=== PATIENT | male | born 1975 ===

== ENCOUNTER 2017-04-05 06:49 | Emergency (ER) | payer OTHER ==
[2017-04-05 07:16] VITALS: BP 143/78; PULSE 71; RESP 16; TEMP 97.8; O2SAT 97
--- NOTE | 2017-04-05 07:27 | ED PDOC ---
HPI: Abdomen Time Seen by Provider: 04/05/17 07:14 Chief Complaint (Nursing): Abdominal Pain Chief Complaint (Provider): Abdominal Pain History Per: Patient History/Exam Limitations: no limitations Onset/Duration Of Symptoms: Days Current Symptoms Are (Timing): Still Present Severity: Moderate Location Of Pain/Discomfort: RUQ Quality Of Discomfort: "Pain" Associated Symptoms: denies: Nausea, Vomiting, Diarrhea, Urinary Symptoms Exacerbating Factors: None Alleviating Factors: None Additional Complaint(s): Patient is a 42 year old male with a history of gastritis, presents to ED for evaluation of RUQ pain that started last night. He cannot identify any triggers. Denies radiation of the pain. Patient denies nausea, vomiting or diarrhea or constipation. Denies chest pain, SOB, fever, urinary changes or back pain. Past Medical History Reviewed: Historical Data, Nursing Documentation, Vital Signs Vital Signs: Last Vital Signs Temp 97.8 F 04/05/17 07:12 Pulse 71 04/05/17 07:12 Resp 16 04/05/17 07:12 BP 143/78 04/05/17 07:12 Pulse Ox 97 04/05/17 10:49 - Medical History PMH: Gastritis - Surgical History Surgical History: No Surg Hx - Family History Family History: States: No Known Family Hx - Living Arrangements Living Arrangements: With Family - Social History Current smoker - smoking cessation education provided: No Alcohol: None Drugs: Denies - Home Medications Home Medications: Ambulatory Orders Medication Instructions Recorded Famotidine [Pepcid] 20 mg PO BID PRN #10 tab 04/15/15 - Allergies Allergies/Adverse Reactions: Allergies Allergy/AdvReac Type Severity Reaction Status Date / Time No Known Allergies Allergy Verified 04/15/15 08:16 Review of Systems ROS Statement: Except As Marked, All Systems Reviewed And Found Negative Constitutional: Negative for: Fever, Chills ENT: Negative for: Ear Pain Cardiovascular: Negative for: Chest Pain Respiratory: Negative for: Shortness of Breath Gastrointestinal: Positive for: Abdominal Pain. Negative for: Nausea, Vomiting , Diarrhea, Hematochezia, Hematemesis Genitourinary Male: Negative for: Dysuria, Hematuria Musculoskeletal: Negative for: Neck Pain, Back Pain Physical Exam - Reviewed Nursing Documentation Reviewed: Yes Vital Signs Reviewed: Yes - Physical Exam Appears: Positive for: Non-toxic, No Acute Distress Head Exam: Positive for: ATRAUMATIC Skin: Positive for: Normal Color, Warm. Negative for: Pallor Eye Exam: Positive for: Normal appearance, PERRL Neck: Positive for: Normal, Painless ROM Cardiovascular/Chest: Positive for: Regular Rate, Rhythm. Negative for: Murmur Respiratory: Positive for: Normal Breath Sounds. Negative for: Respiratory Distress Gastrointestinal/Abdominal: Positive for: Soft, Tenderness (RUQ with referred pain diffusely ). Negative for: Distended, Guarding, Rebound Extremity: Positive for: Normal ROM Neurologic/Psych: Positive for: Alert, Oriented. Negative for: Motor/Sensory Deficits - Laboratory Results Result Diagrams: 04/05/17 07:42 04/05/17 07:42 - ECG O2 Sat by Pulse Oximetry: 97 (RA) Pulse Ox Interpretation: Normal Medical Decision Making Medical Decision Making: Time: 714 Initial impression: Abdominal pain r/o cholecystitis Initial plan: -- CMP -- Lipase -- Magnesium -- Phosphorous -- CBC -- NSF, Toradol and Zofran -- U/S Scribe Attestation: Documented by Layla Perez acting as a scribe for Telma Vega MD MD Scribe Attestation: All medical record entries made by the Scribe were at my direction and personally dictated by me. I have reviewed the chart and agree that the record accurately reflects my personal performance of the history, physical exam, medical decision making, and the department course for this patient. I have also personally directed, reviewed, and agree with the discharge instructions and disposition. 8:24AM Labs show elevated lfts, but normal bilirubin. Lipase WNL. P: RUQ u/s 10:35AM U/s negative for acute pathology. patient is tolerating po and feels better. LFTs are chronicly elevated with mild elevation today. Instructed to follow-up for resolution 10:46AM Fatty infiltration of the liver. Roughly 2 cm irregularly-shaped hypoechoic lesion in the left hepatic lobe. Possible focal fatty sparing but this is not certain on the basis of this examination. Consider correlation with pre and post contrast enhanced CT examination on a nonemergent basis. No evidence of cholelithiasis or cholecystitis. . Disposition - Clinical Impression Clinical Impression: Liver lesion, Gastritis - Disposition Disposition: Routine/Home Disposition Time: 10:36 Condition: GOOD Additional Instructions: Follow up with PMD within 2 days. Return to ED if condition worsens. Follow- up as outpatient for liver lesion Instructions: Gastritis (ED) Print Language: UPPER SORBIAN
[2017-04-05] MEDS ORDERED: Sodium Chloride 0.9% 1,000 ML IV SCH (07:30)
[2017-04-05 08:00] LABS: BASO % 0.6 % (0.0-2.0); EOS # 0.1 K/uL (0.0-0.7); EOS % 2.4 % (0.0-4.0); HEMATOCRIT 42.8 % (35.0-51.0); LYMPH # 1.6 K/uL (1.0-4.3); LYMPH % 36.9 % (20.0-40.0); MEAN CELL VOLUME 87.4 fl (80.0-94.0); MEAN CORPUSCULAR HEMOGLOBIN 29.9 pg (27.0-31.0); MEAN CORPUSCULAR HGB CONC 34.2 g/dL (33.0-37.0); MEAN PLATELET VOLUME 8.4 fl (7.2-11.7); MONO # 0.4 K/uL (0.0-0.8); MONO % 10.3 % (0.0-10.0); NEUT # 2.1 K/uL (1.8-7.0); NEUT % 49.8 % (50.0-75.0); NRBC % 0.1 % (0.0-0.0); RED CELL DISTRIBUTION WIDTH 14.1 % (11.5-14.5); WHITE BLOOD COUNT 4.3 K/uL (4.8-10.8)
[2017-04-05 08:08] LABS: ALB/GLOB RATIO 1.3 (1.0-2.1); ALKALINE PHOSPHATASE 109 U/L (38-126); ALT/SGPT 186 U/L (21-72); AST/SGOT 99 U/L (17-59); BILIRUBIN,TOTAL 0.9 mg/dl (0.2-1.3); BLOOD UREA NITROGEN 15 mg/dl (9-20); CARBON DIOXIDE 27 mmol/L (22-30); CHLORIDE 102 mmol/L (98-107); GFR AFRICAN-AMERICAN > 60; GLUCOSE,RANDOM 101 mg/dL (75-110); LIPASE 70 U/L (23-300); MAGNESIUM 2.3 MG/DL (1.6-2.3); PHOSPHOROUS 3.1 mg/dl (2.5-4.5); POTASSIUM 4.2 MMOL/L (3.6-5.0); SODIUM 140 mmol/l (132-148); TOTAL PROTEIN 7.9 G/DL (6.3-8.2)
[2017-04-05] MEDS ORDERED: Oxycodone/Acetaminophen 5/325 mg Tab ONE (08:26)
[2017-04-05] MEDS ORDERED: Oxycodone/Acetaminophen 5/325 mg Tab PO ONE (08:30)
[2017-04-05] MEDS ORDERED: Alum-Mag Hydrox-Simethicone Susp (30 mL) ONE (10:35)
[2017-04-05] MEDS ORDERED: Alum-Mag Hydrox-Simethicone Susp (30 mL) PO STA (10:36)
--- NOTE | 2017-04-05 10:46 | US ---
HISTORY: RUQ pain COMPARISON: None. TECHNIQUE: Sonographic evaluation of the abdomen. FINDINGS: LIVER: Measures 17.5 cm. Diffusely increased echogenicity of the liver parenchyma. Smooth contour. Irregularly-shaped hypoechoic mass/ lesion in left hepatic lobe, roughly 2 cm diameter. Possible focal fatty sparing. However, this is not certain on the basis of this examination. Consider correlation pre and post contrast enhanced computed tomography. No other hepatic mass. No biliary ductal dilatation. No mass. No intrahepatic bile duct dilatation. GALLBLADDER: Unremarkable. No gallstones. COMMON BILE DUCT: Measures 4 mm. No stones. No dilatation. PANCREAS: Unremarkable as visualized. No mass. No ductal dilatation. RIGHT KIDNEY: Measures 10.8cm. Normal echogenicity. No calculus, mass, or hydronephrosis. LEFT KIDNEY: Measures 13.0cm. Normal echogenicity. No calculus, mass, or hydronephrosis. SPLEEN: Normal in size and contour. No mass. AORTA: No aneurysmal dilatation. IVC: Unremarkable. OTHER FINDINGS: None. IMPRESSION: Fatty infiltration of the liver. Roughly 2 cm irregularly-shaped hypoechoic lesion in the left hepatic lobe. Possible focal fatty sparing but this is not certain on the basis of this examination. Consider correlation with pre and post contrast enhanced CT examination on a nonemergent basis. No evidence of cholelithiasis or cholecystitis. .
== END 2017-04-05 11:10 | disposition home or self-care (01) ==
LOC: H.ER 06:49
DX: K29.70 Gastritis, unspecified, without bleeding (principal); K76.0 Fatty (change of) liver, not elsewhere classified; R10.11 Right upper quadrant pain

== ENCOUNTER 2017-05-23 07:19 | Emergency (ER) | payer OTHER ==
[2017-05-23 07:24] VITALS: TEMP 97; O2SAT 99; BMI 29.4
[2017-05-23 08:07] VITALS: RESP 18
[2017-05-23] MEDS ORDERED: Sodium Chloride 0.9% 1,000 ML IV STA (08:22)
--- NOTE | 2017-05-23 08:22 | ED PDOC ---
HPI: Abdomen Time Seen by Provider: 05/23/17 07:38 Chief Complaint (Nursing): Abdominal Pain Chief Complaint (Provider): abdominal pain History Per: Patient History/Exam Limitations: no limitations Onset/Duration Of Symptoms: Other (x 2 weeks) Outside of [place] travel?: No Additional Complaint(s): Kyle Cardona is a 42 year old male, with no previous medical history, who presents to the ED with comlaints of abdominal pain associated with diarrhea ongoing for 2 weeks. Patient denies any nausea, vomiting, urinary symptoms, fever, chills or drinking caffeine. He reports taking milanta with some relief. Patient was seen in the ED 1 month ago for similar symptoms where he was diagnosed with gastritis. PMD: none provided Past Medical History Reviewed: Historical Data, Nursing Documentation, Vital Signs Vital Signs: Last Vital Signs Temp 97 F L 05/23/17 08:05 Pulse 74 05/23/17 08:05 Resp 18 05/23/17 08:05 BP 137/92 H 05/23/17 08:05 Pulse Ox 99 05/23/17 08:39 - Medical History PMH: Gastritis - Surgical History Surgical History: No Surg Hx - Family History Family History: States: Unknown Family Hx - Social History Alcohol: Social Drugs: Denies - Home Medications Home Medications: Ambulatory Orders Medication Instructions Recorded Famotidine [Pepcid] 20 mg PO BID PRN #10 tab 04/15/15 Famotidine [Pepcid] 20 mg PO BID #28 tab 05/23/17 - Allergies Allergies/Adverse Reactions: Allergies Allergy/AdvReac Type Severity Reaction Status Date / Time No Known Allergies Allergy Verified 04/15/15 08:16 Review of Systems ROS Statement: Except As Marked, All Systems Reviewed And Found Negative Constitutional: Negative for: Fever, Chills Gastrointestinal: Positive for: Abdominal Pain, Diarrhea. Negative for: Nausea , Vomiting Genitourinary Male: Negative for: Dysuria, Frequency, Incontinence, Hematuria Physical Exam - Reviewed Nursing Documentation Reviewed: Yes Vital Signs Reviewed: Yes - Physical Exam Appears: Positive for: Well, Non-toxic (anicteric ), No Acute Distress Head Exam: Positive for: ATRAUMATIC, NORMAL INSPECTION, NORMOCEPHALIC Skin: Positive for: Normal Color, Warm, Dry Eye Exam: Positive for: Normal appearance ENT: Positive for: Normal ENT Inspection Neck: Positive for: Normal, Painless ROM Cardiovascular/Chest: Positive for: Regular Rate, Rhythm Respiratory: Positive for: Normal Breath Sounds Gastrointestinal/Abdominal: Positive for: Bowel Sounds, Soft, Tenderness (RUQ, RLQ and LLQ), Guarding (mild in the RUQ) Back: Positive for: Normal Inspection Extremity: Positive for: Normal ROM Neurologic/Psych: Positive for: Alert, Oriented - Laboratory Results Result Diagrams: 05/23/17 08:53 05/23/17 08:53 - ECG O2 Sat by Pulse Oximetry: 99 (RA) Pulse Ox Interpretation: Normal Medical Decision Making Medical Decision Making: Initial Impression: abdominal pain with differencials including diverticulitis and colithiasis Initial Plan: * labs * lipase * X-ray obstructive series * pepcid 20 mg IV * toradol 30 mg IV * zofran 4 mg IV * reevaluation Scribe Attestation: Documented by Love Grimes, acting as a scribe for Edyta Santana MD. Provider Scribe Attestation: All medical record entries made by the Scribe were at my direction and personally dictated by me. I have reviewed the chart and agree that the record accurately reflects my personal performance of the history, physical exam, medical decision making, and the department course for this patient. I have also personally directed, reviewed, and agree with the discharge instructions and disposition. Disposition - Clinical Impression Clinical Impression: Abdominal discomfort - Patient ED Disposition Is Patient to be Admitted: No Doctor Will See Patient In The: Office Counseled Patient/Family Regarding: Diagnosis, Need For Followup, Rx Given - Disposition Referrals: [facility] [Outside] [facility] [Outside] [facility] [Outside] Disposition: Routine/Home Disposition Time: 12:30 Condition: IMPROVED Prescriptions: Famotidine [Pepcid] 20 mg PO BID #28 tab Instructions: Abdominal Pain (ED) Forms: [employer] (Montserratian) Print Language: COLOMBIAN - POA Present On Arrival: None
[2017-05-23 09:02] LABS: BASO % 0.5 % (0.0-2.0); EOS # 0.1 K/uL (0.0-0.7); EOS % 2.3 % (0.0-4.0); HEMATOCRIT 43.3 % (35.0-51.0); LYMPH # 1.5 K/uL (1.0-4.3); LYMPH % 29.3 % (20.0-40.0); MEAN CELL VOLUME 87.7 fl (80.0-94.0); MEAN CORPUSCULAR HEMOGLOBIN 30.1 pg (27.0-31.0); MEAN CORPUSCULAR HGB CONC 34.4 g/dL (33.0-37.0); MEAN PLATELET VOLUME 7.8 fl (7.2-11.7); MONO # 0.5 K/uL (0.0-0.8); MONO % 8.9 % (0.0-10.0); NEUT # 3.1 K/uL (1.8-7.0); NRBC % 0.2 % (0.0-0.0); RED CELL DISTRIBUTION WIDTH 13.5 % (11.5-14.5); WHITE BLOOD COUNT 5.2 K/uL (4.8-10.8)
[2017-05-23 09:32] LABS: ALB/GLOB RATIO 1.2 (1.0-2.1); ALKALINE PHOSPHATASE 155 U/L (38-126); ALT/SGPT 158 U/L (21-72); AST/SGOT 93 U/L (17-59); BILIRUBIN,TOTAL 0.8 mg/dl (0.2-1.3); BLOOD UREA NITROGEN 12 mg/dl (9-20); CALCIUM 9.3 mg/dL (8.4-10.2); CARBON DIOXIDE 27 mmol/L (22-30); CHLORIDE 103 mmol/L (98-107); GFR AFRICAN-AMERICAN > 60; GLUCOSE,RANDOM 101 mg/dL (75-110); LIPASE 50 U/L (23-300); POTASSIUM 4.3 MMOL/L (3.6-5.0); SODIUM 139 mmol/l (132-148); TOTAL PROTEIN 7.9 G/DL (6.3-8.2)
--- NOTE | 2017-05-23 10:40 | RAD ---
PROCEDURE: Radiographs of the chest and abdomen (obstructive series) HISTORY: abd pain, RUQ, RLQ, LLQ COMPARISON: No prior. TECHNIQUE: AP radiograph of the chest, with upright and supine radiographs of the abdomen. FINDINGS: CHEST: Lungs: Clear. Cardiovascular: Normal size heart. No pulmonary vascular congestion. Pleura: No pleural fluid. No pneumothorax. Other findings: None. ABDOMEN AND PELVIS: Bowel: No evidence of acute mechanical bowel obstruction. Moderate amount of stool seen within the cecum at ascending and transverse colon suggesting mild fecal retention. . Free air: None. Bones: Incidental note made of spina bifida occulta S1 level Other findings: Questionable small calcified granuloma left overlying the left acetabular region. . IMPRESSION: No acute cardiopulmonary disease. Findings suggest mild constipation. No evidence of acute mechanical bowel obstruction.
[2017-05-23 13:56] VITALS: BP 130/90; PULSE 70
== END 2017-05-23 13:20 | disposition home or self-care (01) ==
LOC: H.ER 07:19
DX: R10.9 Unspecified abdominal pain (principal)

== ENCOUNTER 2017-06-10 07:08 | Emergency (ER) | payer OTHER ==
[2017-06-10 07:15] VITALS: BP 119/81; PULSE 73; TEMP 97; O2SAT 97
[2017-06-10 07:16] VITALS: BMI 29.2
--- NOTE | 2017-06-10 07:41 | ED PDOC ---
HPI: Abdomen Time Seen by Provider: 06/10/17 07:19 Chief Complaint (Nursing): Abdominal Pain Chief Complaint (Provider): Abdominal Pain History Per: Patient History/Exam Limitations: no limitations Onset/Duration Of Symptoms: Days (x 2 months) Current Symptoms Are (Timing): Still Present Location Of Pain/Discomfort: RUQ, Epigastric Additional Complaint(s): Kyle is a 42-year-old male with no past medical history who presents to the ED complaining of epigastric and RUQ abdominal pain for the past 2 months. Patient has been seen here multiple times with work up including CT and US as well as blood work, all nondiagnostic. Denies any associated fever, vomiting, hematochezia. Admits he drinks alcohol occasionally. PMD: Esvin Caldwell Past Medical History Reviewed: Historical Data, Nursing Documentation, Vital Signs Vital Signs: Last Vital Signs Temp 97 F L 06/10/17 07:14 Pulse 73 06/10/17 07:14 Resp BP 119/81 06/10/17 07:14 Pulse Ox 97 06/10/17 07:42 - Medical History PMH: Gastritis - Surgical History Surgical History: No Surg Hx - Family History Family History: States: Unknown Family Hx - Social History Current smoker - smoking cessation education provided: Yes (Light) Alcohol: Occasional Drugs: Denies - Home Medications Home Medications: Ambulatory Orders Medication Instructions Recorded Famotidine [Pepcid] 20 mg PO BID PRN #10 tab 04/15/15 Famotidine [Pepcid] 20 mg PO BID #28 tab 05/23/17 Dicyclomine [Dicyclomine HCl] 10 mg PO TID #10 cap 06/10/17 Pantoprazole Sodium [Protonix] 40 mg PO DAILY #30 tablet. 06/10/17 - Allergies Allergies/Adverse Reactions: Allergies Allergy/AdvReac Type Severity Reaction Status Date / Time No Known Allergies Allergy Verified 04/15/15 08:16 Review of Systems ROS Statement: Except As Marked, All Systems Reviewed And Found Negative Constitutional: Negative for: Fever Gastrointestinal: Positive for: Abdominal Pain (epigastric and RUQ). Negative for: Vomiting, Hematochezia Physical Exam - Reviewed Nursing Documentation Reviewed: Yes Vital Signs Reviewed: Yes - Physical Exam Appears: Positive for: Non-toxic, No Acute Distress Head Exam: Positive for: ATRAUMATIC, NORMAL INSPECTION, NORMOCEPHALIC Skin: Positive for: Normal Color, Dry (and cool). Negative for: Jaundice Eye Exam: Positive for: EOMI, Normal appearance, PERRL Neck: Positive for: Normal, Painless ROM, Supple Cardiovascular/Chest: Positive for: Regular Rate, Rhythm. Negative for: Murmur Respiratory: Positive for: Normal Breath Sounds. Negative for: Accessory Muscle Use, Respiratory Distress Gastrointestinal/Abdominal: Positive for: Soft, Tenderness (mild epigastric and RUQ tenderness) Back: Positive for: Normal Inspection. Negative for: L CVA Tenderness, R CVA Tenderness Extremity: Positive for: Normal ROM. Negative for: Deformity Neurologic/Psych: Positive for: Alert, Oriented - ECG O2 Sat by Pulse Oximetry: 97 (RA) Pulse Ox Interpretation: Normal Medical Decision Making Medical Decision Making: Time: 07:35 Initial Plan: --Bentyl 10 mg PO --Pending reevaluation Scribe Attestation: Documented by Renee Cosby, acting as a scribe for Marcus Melton MD Provider Scribe Attestation: All medical record entries made by the Scribe were at my direction and personally dictated by me. I have reviewed the chart and agree that the record accurately reflects my personal performance of the history, physical exam, medical decision making, and the department course for this patient. I have also personally directed, reviewed, and agree with the discharge instructions and disposition. Disposition - Clinical Impression Clinical Impression: Gastritis, Abdominal pain - Patient ED Disposition Is Patient to be Admitted: No Counseled Patient/Family Regarding: Diagnosis, Need For Followup, Rx Given - Disposition Referrals: Pramod CORONEL,MD Maylin [Medical Doctor] - Disposition: Routine/Home Disposition Time: 07:50 Condition: FAIR Prescriptions: Dicyclomine [Dicyclomine HCl] 10 mg PO TID #10 cap Pantoprazole Sodium [Protonix] 40 mg PO DAILY #30 tablet.dr Chanye: Dicyclomine (By mouth), Gastritis (ED) Forms: [employer] (M[place]ese) Print Language: SAMMARINESE
== END 2017-06-10 08:09 | disposition home or self-care (01) ==
LOC: H.ER 07:08
DX: K29.70 Gastritis, unspecified, without bleeding (principal)